=== PATIENT | female | born 1985 | race Caucasian/White ===

== ENCOUNTER 2017-02-11 08:49 | Emergency (ER) | payer SELFPAY ==
[~2017-02-11] VITALS: Ht 167.6 cm; Wt 86.9 kg
[2017-02-11 08:56] VITALS: BP 122/85
== END 2017-02-11 11:08 | disposition home or self-care (01) ==
LOC: ED 11:02
DX: S90.31XA Contusion of right foot, initial encounter (principal); X58.XXXA Exposure to other specified factors, initial encounter; Y93.89 Activity, other specified; Y92.89 Other specified places as the place of occurrence of the external cause; Y99.8 Other external cause status
CPT/HCPCS: 99284